=== PATIENT | female | born 1955 | race African-American/Black ===

== ENCOUNTER 2017-09-06 16:20 | Emergency (ER) | payer MEDICARE, OTHER ==
[2017-09-06 17:29] LABS: Bilirubin Negative (Negative); Blood, Urine Negative (Negative); Glucose, Urine (Dipstick) Negative (Negative); Leukocyte Small (Negative); Nitrite Negative (Negative); Protein, Urine (Dipstick) Negative (Neg-Trace); Specific Gravity, Urine 1.015 (1.005-1.030); Urobilinogen 0.2 mg/dL (0.2-1.0)
[2017-09-06 17:31] LABS: Clarity Hazy (Clear); RBC/HPF 0-3 HPF (0-3)
[2017-09-06 17:32] LABS: Bacteria/HPF Rare-Few HPF (None Seen)
[2017-09-06 17:47] LABS: ALT (SGPT) 12 U/L (8-55); AST (SGOT) 21 U/L (5-34); Albumin 3.5 g/dL (3.4-4.8); Alkaline Phosphatase 143 U/L (40-150); Anion Gap 18 mmol/L (10-20); BUN (Urea Nitrogen) 23 mg/dL (9.8-20.1); Bilirubin, Total Less than 0.3 mg/dL (0.2-1.2); CK (CPK) 80 U/L (29-168); Calc. Creatinine Clearance 0 mL/min (70-130); Calcium 10.6 mg/dL (7.8-10.44); Carbon Dioxide 21 mmol/L (23-31); Chloride 110 mmol/L (98-107); Estimated GFR-MDRD 75; Globulin 4.1 g/dL (2.4-3.5); Glucose 77 mg/dL (80-115); Potassium 4.1 mmol/L (3.5-5.1); Protein, Total 7.6 g/dL (6.0-8.3); Sodium 145 mmol/L (136-145)
[2017-09-06 18:01] LABS: CKMB 3.3 ng/mL (0-6.6); Troponin I 0.025 ng/mL (< 0.028)
--- NOTE | 2017-09-06 18:02 | RAD ---
CHEST ONE VIEW: History: Dyspnea. Comparison: None. FINDINGS: Heart size is upper limits of normal. No focal airspace consolidation, pneumothorax, or effusion on this limited upright exam. There is an old right clavicular fracture with non-healing. The distal fragment is displaced inferio rly approximately 12 mm. IMPRESSION: 1. Mild cardiomegaly. 2. 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 POS: [facility]
[2017-09-06] MEDS ORDERED: Lorazepam 2 MG/ML VIAL ONE (18:07)
[2017-09-06] MEDS ORDERED: Ondansetron HCl/PF 4 MG/2 ML Vial ONE (18:08)
[2017-09-06] MEDS ORDERED: cloNIDine 0.1 MG TAB ONE (18:08)
[2017-09-06] MEDS ORDERED: Ketorolac Tromethamine 30 MG/ML VIAL ONE (18:08)
[2017-09-06] MEDS ORDERED: Sulfameth/Trimethoprim DS 800-160mg TAB ONE (23:58)
[2017-09-07] MEDS ORDERED: Oxymetazoline HCl 0.05% ( 15 ML ) ONE (00:34)
== END 2017-09-07 07:05 ==
LOC: MADERS 16:20
DX: J01.00 Acute maxillary sinusitis, unspecified (principal); F41.9 Anxiety disorder, unspecified; K21.9 Gastro-esophageal reflux disease without esophagitis; S42.001K Fracture of unspecified part of right clavicle, subsequent encounter for fracture with nonunion; I10 Essential (primary) hypertension; Z87.440 Personal history of urinary (tract) infections; Z79.899 Other long term (current) drug therapy; X58.XXXA Exposure to other specified factors, initial encounter
CPT/HCPCS: 36415; 71010; 80053; 81001; 82550; 82553; 84484; 87086; 93005; 94760; 96374; 96375; J1885; J2060; J2405